=== PATIENT | female | born 1965 | race Caucasian/White ===

== ENCOUNTER 2022-05-07 08:32 | Emergency (ER) | payer MEDICAID ==
[~2022-05-07] VITALS: Ht 165.1 cm; Wt 64.0 kg
[2022-05-07] MEDS ORDERED: MORPHINE SULFATE 4 MG/ML CPJ (NOT FOR IM USE) IV STA (09:04)
[2022-05-07 09:45] LABS: BASOPHILS % 0.6 % (0.0-2.0); EOSINOPHILS % 4.1 % (0.0-5.0); HEMATOCRIT. 38.9 % (36.0-48.0); HEMOGLOBIN. 12.7 g/dL (12.0-16.0); LYMPHOCYTES % 27.9 % (20.0-50.0); MEAN CORPUSCULAR HEMOGLOBIN 27.7 pg (28.0-32.0); MEAN CORPUSCULAR VOLUME 84.6 fL (81.0-99.0); MEAN PLATELET VOLUME 7.7 fl (7.4-10.4); MONOCYTES % 9.2 % (2.0-8.0); NEUTROPHILS % 58.2 % (40.0-76.0); PLATELET 313 x1000/uL (130-400); RED CELL DISTRIBUTION WIDTH 25.8 % (11.6-14.6)
[2022-05-07 09:52] LABS: CHLORIDE 109 mEq/L (98-107)
[2022-05-07 09:58] LABS: PROTHROMBIN TIME 10.3 sec (9.6-11.0)
[2022-05-07 10:40] LABS: PLATELET ESTIMATE NORMAL
[2022-05-07] MEDS ORDERED: VALA100044 PO (11:46)
[2022-05-07] MEDS ORDERED: T3 PO (11:46)
[2022-05-07] MEDS ORDERED: CEPH500T PO (11:47)
[2022-05-07] MEDS ORDERED: SULF1TAB48 PO (11:47)
[2022-05-07 12:53] VITALS: BP 100/75
== END 2022-05-07 12:55 | disposition home or self-care (01) ==
LOC: ER 08:32
DX: B02.9 Zoster without complications (principal)
CPT/HCPCS: 36415; 80053; 85025; 85610; 96374; 99283; J2270; Z7610

== ENCOUNTER 2022-07-03 20:05 | Emergency (ER) | payer MEDICAID, OTHER ==
[~2022-07-03] VITALS: Ht 162.6 cm; Wt 69.9 kg
[~2022-07-03 20:05] MED LIST: CEPH500T PO; SULF1TAB48 PO; T3 PO; VALA100044 PO
[2022-07-03 20:17] VITALS: BP 150/91
[2022-07-03 22:57] LABS: BASOPHILS % 0.6 % (0.0-2.0); HEMATOCRIT. 41.9 % (36.0-48.0); LYMPHOCYTES % 19.1 % (20.0-50.0); MEAN CORPUSCULAR HEMOGLOBIN 32.2 pg (28.0-32.0); MEAN CORPUSCULAR VOLUME 96.6 fL (81.0-99.0); MONOCYTES % 9.4 % (2.0-8.0); NEUTROPHILS % 69.9 % (40.0-76.0); PLATELET 349 x1000/uL (130-400); RED BLOOD CELL COUNT 4.34 mill/uL (4.2-5.4); RED CELL DISTRIBUTION WIDTH 17.5 % (11.6-14.6)
[2022-07-03 23:03] LABS: CHLORIDE 104 mEq/L (98-107)
[2022-07-04] MEDS ORDERED: IBUPROFEN 600MG TABLET PO ONE (02:30)
[2022-07-04] MEDS ORDERED: ALPRAZOLAM 0.25 MG TABLET PO SCH (06:00)
== END 2022-07-04 04:47 | disposition home or self-care (01) ==
LOC: ER 20:05
DX: R51.9 Headache, unspecified (principal); R42 Dizziness and giddiness; F41.9 Anxiety disorder, unspecified; D64.9 Anemia, unspecified; F32.9 Major depressive disorder, single episode, unspecified; E78.00 Pure hypercholesterolemia, unspecified
CPT/HCPCS: 36415; 71045; 80053; 84484; 85025; 93005; 99285